=== PATIENT | male | born 1940 | race Caucasian/White ===

== ENCOUNTER → 2021-12-14 13:41 | Outpatient (BNVA) | payer MEDICARE, BC, SELFPAY | PROVIDERS: PCP Family Medicine; Visit Provider Orthopaedic Surgery | DX: G56.02 Carpal tunnel syndrome, left upper limb (principal); M65.312 Trigger thumb, left thumb | CPT/HCPCS: 99202 ==

== ENCOUNTER 2021-12-30 10:12 | Day surgery (SDC) | payer MEDICARE, BC, SELFPAY ==
[2021-12-21 11:07] VITALS: BMI 36.0
[2021-12-30 10:18] VITALS: BP 179/67; PULSE 60; RESP 16; TEMP 36.6; O2SAT 99
--- NOTE | 2021-12-30 11:08 | PC.NURSE ---
spoke with patient and md for student nurse to go watch the procedure room.
[2021-12-30 12:19] VITALS: BP 163/72; PULSE 62; RESP 16; TEMP 37.3; O2SAT 98
--- NOTE | 2021-12-30 14:31 | MHC.SHP ---
Pre-Procedural Eval Section A Date of Service: 12/30/21 The patient is an INPATIENT: No Changes since office visit: No Cold of Flu in the past 2 weeks, No New Medical Problems, No Changes in Medication and No Patient answered all questions The History & Physical has been completed within 30 days and I have reviewed it.: Yes Section B Chief Complaint: carpal tunnel syndrome Allergies: Allergies Allergy/AdvReac Type Severity Reaction Status Date / Time acetaminophen [From Percocet] Allergy Itching Verified 12/29/21 12:37 oxycodone [From Percocet] Allergy Itching Verified 12/29/21 12:37 Plan I have reviewed the history and physical and performed a pertinent physical examination on my patient. No changes have occurred unless specified.
--- NOTE | 2021-12-30 14:31 | W.PM.OPN ---
Operative Note Operative Note Date of Service: 12/30/21 Narrative: Preop diagnosis: 1. Left Carpal tunnel syndrome 2. Left trigger thumb Postop diagnosis: same Procedure: 1. left Carpal tunnel release 2. Left thumb trigger release Surgeon: Kaye Valencia MD Anesthesia: local block using 1% lidocaine with epinephrine Findings: Thickened transverse carpal ligament. no locking and catching after trigger release. EBL: Less than 5 mL Specimens: None Complications: None Disposition: Brought to recovery room in stable condition Plan: Follow-up for 10-14 days for wound check and suture removal Indications: The patient is [age] years old, with left carpal tunnel syndrome and a left trigger thumb that have been unresponsive to nonoperative management. The risks and benefits of operative treatment including but not limited to risk of damage to blood vessels, nerves, tendons, infection, persistent pain, persistent symptoms, or possible need for additional surgery were discussed with the patient and the patient wishes to proceed with surgery. Procedure: Once consent was obtained a local block was performed using a combination of 1% lidocaine with epinephrine. The patient was then brought back to the operating suite and placed on the operative table in supine position. A tourniquet was applied to the proximal aspect of the left upper extremity and the limb was prepped and draped in a standard surgical fashion. Once assured that we had a good block, a 1.5 cm longitudinal incision was made centered over the carpal tunnel. The incision was made through the skin to the subcutaneous tissues using a #15 blade. Dissection was made down to the level of the transverse carpal ligament with care being taken to protect the palmar cutaneous nerve. Once the transverse carpal ligament was clearly visualized, a longitudinal incision was made in the transverse carpal ligament 1st using a #15 blade, then using tenotomy scissors under direct visualization. Care was taken to look for and protect the motor branch of the median nerve when seen in this area. Once assured that we had a good block, a 1.5 cm oblique incision was made centered over the A1 lcuía of the left thumb . The incision was made through the skin to the subcutaneous tissues using a #15 blade. Careful dissection was made down to the level of the A1 lucía using tenotomy scissors, with care being taken to protect the nearby neurovascular structures. A longitudinal incision was made in the A1 lucía 1st using a #15 blade, then using tenotomy scissors under direct visualization. The A1 lucía was noted to be thickened. Following our A1 lucía release, we no longer saw any locking or catching of the digit with flexion and extension. Once satisfied with our carpal tunnel release and trigger thumb release the wounds were copiously irrigated with normal saline and hemostasis was obtained with a brief period of local pressure. The skin edges were reapproximated with some 5.0 nylon suture material and a sterile dressing was applied. The patient appears to have tolerated the procedure well and with no complications. All digits were well vascularized at the conclusion of the case.
== END 2021-12-30 12:40 | disposition home or self-care (01) ==
PROVIDERS: PCP Family Medicine; Visit Provider Orthopaedic Surgery
PROC: (CPT 64721; principal; 2021-12-30 11:20)
DX: G56.02 Carpal tunnel syndrome, left upper limb (principal); M65.312 Trigger thumb, left thumb; R20.0 Anesthesia of skin; I10 Essential (primary) hypertension; I48.0 Paroxysmal atrial fibrillation; Z79.01 Long term (current) use of anticoagulants; Z79.899 Other long term (current) drug therapy; Z88.8 Allergy status to other drugs, medicaments and biological substances
CPT/HCPCS: 64721; 26055

== ENCOUNTER → 2022-01-12 12:20 | Outpatient (BNVA) | payer MEDICARE, BC, SELFPAY | PROVIDERS: PCP Family Medicine; Visit Provider Orthopaedic Surgery | DX: M65.312 Trigger thumb, left thumb (principal); G56.02 Carpal tunnel syndrome, left upper limb | CPT/HCPCS: 99212 ==

== ENCOUNTER → 2022-03-01 08:18 | Outpatient (BNVA) | payer MEDICARE, BC, SELFPAY | PROVIDERS: PCP Family Medicine; Visit Provider Orthopaedic Surgery | DX: M65.332 Trigger finger, left middle finger (principal); M65.312 Trigger thumb, left thumb; G56.02 Carpal tunnel syndrome, left upper limb | CPT/HCPCS: 20550; 99212; J1100 ==

== ENCOUNTER → 2022-04-13 11:19 | Outpatient (BNVA) | payer MEDICARE, BC, SELFPAY | PROVIDERS: PCP Family Medicine; Visit Provider Orthopaedic Surgery | DX: M65.332 Trigger finger, left middle finger (principal); M65.312 Trigger thumb, left thumb; G56.02 Carpal tunnel syndrome, left upper limb; Z98.890 Other specified postprocedural states | CPT/HCPCS: 99212 ==

== ENCOUNTER 2022-05-02 09:57 | Day surgery (SDC) | payer MEDICARE, SELFPAY ==
--- NOTE | 2022-05-02 07:51 | W.PM.OPN ---
Operative Note Operative Note Date of Service: 05/02/22 Narrative: Operative Note Preop diagnosis: 1. left middle finger Trigger finger Postop diagnosis: 1. left middle finger Trigger finger Procedure: 1. left middle finger A1 lucía release Surgeon: Kaye Valencia MD Anesthesia: local block using 1% lidocaine with epinephrine Findings: No locking or catching after A1 lucía release EBL: Less than 5 mL Tourniquet time: None Specimens: None Complications: None Disposition: Brought to recovery room in stable condition Plan: Follow-up for 10-14 days for wound check and suture removal Indications: The patient is 82 years old, with a left middle finger trigger finger that has been unresponsive to nonoperative management. The risks and benefits of operative treatment including but not limited to risk of damage to blood vessels, nerves, tendons, infection, persistent pain, persistent symptoms, recurrence or possible need for additional surgery were discussed with the patient and the patient wishes to proceed with surgery. Procedure: Once consent was obtained a local block was performed in the preop area using a combination of 1% lidocaine with epinephrine. The patient was then brought back to the operating suite and placed on the operative table in supine position. A tourniquet was applied to the proximal aspect of the left upper extremity and the limb was prepped and draped in a standard surgical fashion. Once assured that we had a good block, a 1.5 cm oblique incision was made centered over the A1 lucía of the left middle finger . The incision was made through the skin to the subcutaneous tissues using a #15 blade. Careful dissection was made down to the level of the A1 lucía using tenotomy scissors, with care being taken to protect the nearby neurovascular structures. A longitudinal incision was made in the A1 lucía 1st using a #15 blade, then using tenotomy scissors under direct visualization. The A1 lucía was noted to be thickened. Following our A1 lucía release, we no longer saw any locking or catching of the digit with flexion and extension. Once satisfied with our A1 lucía release the wound was copiously irrigated with normal saline and hemostasis was obtained with a brief period of local pressure. The skin edges were reapproximated with some 5.0 nylon suture material and a sterile dressing was applied. The patient appears to have tolerated the procedure well and with no complications. All digits were well vascularized at the conclusion of the case.
[2022-05-02 10:33] VITALS: BP 169/65; PULSE 62; RESP 16; TEMP 36.4; O2SAT 98; BMI 28.5
--- NOTE | 2022-05-02 10:50 | MHC.SHP ---
Pre-Procedural Eval Section A Date of Service: 05/02/22 The patient is an INPATIENT: No Changes since office visit: No Cold of Flu in the past 2 weeks, No New Medical Problems, No Changes in Medication and No Patient answered all questions The History & Physical has been completed within 30 days and I have reviewed it.: Yes Section B Chief Complaint: Trigger finger, left middle finger Allergies: Allergies Allergy/AdvReac Type Severity Reaction Status Date / Time acetaminophen [From Percocet] Allergy Itching Verified 04/13/22 12:07 oxycodone [From Percocet] Allergy Itching Verified 04/13/22 12:07 Plan I have reviewed the history and physical and performed a pertinent physical examination on my patient. No changes have occurred unless specified.
[2022-05-02 12:12] VITALS: BP 167/76; PULSE 76; RESP 16; TEMP 36.8
== END 2022-05-02 12:19 ==
LOC: HO.SSS 09:58
PROVIDERS: PCP Family Medicine; Visit Provider Orthopaedic Surgery
PROC: (CPT 26055; principal; 2022-05-02 11:50)
DX: M65.332 Trigger finger, left middle finger (principal); I10 Essential (primary) hypertension; I48.0 Paroxysmal atrial fibrillation; Z96.641 Presence of right artificial hip joint; Z88.8 Allergy status to other drugs, medicaments and biological substances
CPT/HCPCS: 26055; J0171